=== PATIENT | female | born 1955 | race Caucasian/White ===

== ENCOUNTER 2021-10-26 18:51 | Inpatient (IN) | payer MEDICARE, SELFPAY ==
[~2021-10-26 18:51] MED LIST: Magnevist 469MG/ML 20 ML VIAL ONE
[2021-10-26 19:04] LABS: Actual Bicarbonate (HCO3a) 34.4 mEq/L (22-28); Analyzer IN Cardio ER; Base Excess (BEa) 8.7 mEq/L (-2.0 to +3.0); CO2 Tension 52.1 mmHg (35.0-45.0); Calcium, Ionized (arterial) 1.12 mmol/L (1.12-1.30); Carboxyhemoglobin (COHb) 0.7 gm% (0.0-3.0); Hemoglobin (Hb) 11.8 g/dL (12.0-16.0); O2 Tension (PaO2), arterial 238.3 mmHg (> 80.0); Potassium - ABG Lab 4.97 mmol/L (3.70-5.30); pH, Arterial 7.44 (7.35-7.45)
[2021-10-26 19:05] LABS: Puncture Site RBR
[2021-10-26 19:06] LABS: ALV-art Gradient 266.975 mmHg (0-20)
[2021-10-26 19:09] LABS: Hemoglobin 11.6 g/dL (12.0-16.0); Mean Corpuscular HGB CONC 30.2 g/dL (32.0-36.0); Mean Corpuscular Hemoglobin 32.5 pg (27.0-31.0); Mean Platelet Volume 8.9 fL (7.4-10.4); Platelet Count 257 thou/uL (130-400); RBC Distribution Width 13.7 % (11.5-14.5); Red Blood Cell (RBC) Count 3.57 mill/uL (4.20-5.40); White Blood Cell (WBC) Count 18.4 thou/uL (4.8-10.8)
[2021-10-26] MEDS ORDERED: Fentanyl CADD 100 ML IV SCH (19:15)
[2021-10-26 19:32] LABS: ALT (SGPT) 105 U/L (8-55); AST (SGOT) 456 U/L (5-34); Albumin 2.6 g/dL (3.4-4.8); Alkaline Phosphatase 1885 U/L (40-110); Anion Gap 12 mmol/L (10-20); BUN (Urea Nitrogen) 23 mg/dL (9.8-20.1); Bilirubin, Total 7.9 mg/dL (0.2-1.2); CK (CPK) 198 U/L (29-168); Calc. Creatinine Clearance 0 mL/min (70-130); Calcium 8.4 mg/dL (7.8-10.44); Carbon Dioxide 36 mmol/L (23-31); Chloride 97 mmol/L (98-107); Estimated GFR 95; Globulin 2.1 g/dL (2.4-3.5); Glucose 77 mg/dL (80-115); Potassium 5.2 mmol/L (3.5-5.1); Protein, Total 4.7 g/dL (5.8-8.1); Sodium 140 mmol/L (136-145)
[2021-10-26 19:33] LABS: Band 4 % (5-11); Basophilic Stippling SLIGHT = 1-2 cells (100X) (None Seen); Hypochromia SLIGHT = 6-15 cells (100X) (0-5/hpf); Lymphocytes 3 % (21-51); MDiff Complete? YES; Macrocytosis SLIGHT = 6-15 cells (100X) (0-5/hpf); Monocytes 5 % (0-10); Neutrophil 87 % (42-75); Ovalocytes SLIGHT = 2-5 cells (100X) (0-1/hpf); Platelet Morphology Comment Appears Adequate; Polychromasia SLIGHT = 2-3 cells (100X) (0-2/hpf); Target Cells SLIGHT = 2-5 cells (100X) (0-1/hpf)
[2021-10-26 19:45] LABS: Bacteria/HPF 2+ HPF (None Seen); Bilirubin 2+ (Negative); Blood, Urine Negative (Negative); Clarity Turbid (Clear); Glucose, Urine (Dipstick) Normal (Negative); Ketone, Urine Negative (Negative); Leukocyte Negative Leu/uL (Negative); Nitrite Negative (Negative); Protein, Urine (Dipstick) 50 mg/dL (Neg-Trace); RBC/HPF 0-3 HPF (0-3); Renal Epithelial 0-3 HPF (None Seen); Specific Gravity, Urine 1.026 (1.002-1.036); Squamous Epithelial 0-3 HPF (0-3); Transitional Epithelial 0-3 HPF (None Seen); Urobilinogen Greater than 12 mg/dL (Less than 2); WBC/HPF 21-50 HPF (0-3); pH, Urine 5.5 (5.0-9.0)
[2021-10-26 19:57] LABS: CKMB 8.5 ng/mL (0-6.6)
[2021-10-26 20:03] LABS: Cellular Cast 0-3 LPF (None Seen)
[2021-10-27] MEDS ORDERED: Albuterol 200 PUFF (6.7GM INHALER) INH PRN (00:02)
[2021-10-27] MEDS: Dexamethasone 4 mg/ml Vial SLOW IVP SCH ×5 (00:28→23:04)
[2021-10-27] MEDS ORDERED: Lactated Ringer's 1,000 ML IV SCH ×2 (02:00→04:15)
[2021-10-27 02:53] LABS: #Lymphocytes 0.7 thou/uL (1.20-3.40); #Monocytes 0.5 thou/uL (0.11-0.59); #Neutrophils 14.4 thou/uL (1.40-6.50); %Basophils 0.1 % (0.0-1.0); %Eosinophils 0.1 % (0.0-10.0); %Lymphocytes 4.2 % (21.0-51.0); %Monocytes 3.3 % (0.0-10.0); %Neutrophils 92.4 % (42.0-75.0); Hemoglobin 12.1 g/dL (12.0-16.0); Mean Corpuscular HGB CONC 30.3 g/dL (32.0-36.0); Mean Corpuscular Hemoglobin 32.4 pg (27.0-31.0); Mean Platelet Volume 9.1 fL (7.4-10.4); Platelet Count 282 thou/uL (130-400); RBC Distribution Width 13.9 % (11.5-14.5); Red Blood Cell (RBC) Count 3.73 mill/uL (4.20-5.40); White Blood Cell (WBC) Count 15.6 thou/uL (4.8-10.8)
[2021-10-27 03:10] LABS: ALT (SGPT) 105 U/L (8-55); AST (SGOT) 493 U/L (5-34); Albumin 2.6 g/dL (3.4-4.8); Alkaline Phosphatase 1927 U/L (40-110); Anion Gap 14 mmol/L (10-20); BUN (Urea Nitrogen) 23 mg/dL (9.8-20.1); Bilirubin, Total 8.1 mg/dL (0.2-1.2); Calc. Creatinine Clearance 55 mL/min (70-130); Calcium 8.2 mg/dL (7.8-10.44); Carbon Dioxide 31 mmol/L (23-31); Chloride 100 mmol/L (98-107); Estimated GFR 89; Globulin 2.2 g/dL (2.4-3.5); Glucose 70 mg/dL (80-115); Potassium 5.4 mmol/L (3.5-5.1); Protein, Total 4.8 g/dL (5.8-8.1); Sodium 140 mmol/L (136-145)
[2021-10-27 03:20] LABS: Troponin I 0.015 ng/mL (< 0.028)
[2021-10-27] MEDS ORDERED: Sodium Chloride 0.9% 500 ML IV SCH (04:00)
[2021-10-27] MEDS ORDERED: Dextrose 5% in Water 1,000 ML IV PRN (04:22)
[2021-10-27] MEDS ORDERED: Dextrose 50% Abboject 50 ML SYRINGE SLOW IVP PRN (04:22)
[2021-10-27] MEDS ORDERED: HumaLOG 300 UNITS/3 ML VIAL SC PRN (04:22)
[2021-10-27 04:24] LABS: HBSAg Index 0.22 S/CO (0-0.99); Hep A IgM AB Non-Reactive (NonReactive); Hep B Surf Ag Non-Reactive S/CO (NonReactive); Hepatitis B Core IgM Abs Non-Reactive (NonReactive)
[2021-10-27 05:40] LABS: Hep C Index 0.94 S/CO (0-0.79)
[2021-10-27 05:49] LABS: Hep C IgG Ab Reflex HepC Qnt (NonReactive)
[2021-10-27] MEDS: Budesonide 0.5 MG/2 ML NEB NEB SCH ×2 (06:46→19:12)
[2021-10-27] MEDS: Arformoterol 15 MCG/2 ML NEB NEB SCH ×2 (06:46→19:12)
[2021-10-27 07:06] LABS: Actual Bicarbonate (HCO3a) 28.6 mEq/L (22-28); Base Excess (BEa) 3.4 mEq/L (-2.0 to +3.0); CO2 Tension 46.2 mmHg (35.0-45.0); Carboxyhemoglobin (COHb) 0.4 gm% (0.0-3.0); Hemoglobin (Hb) 11.2 g/dL (12.0-16.0); O2 Tension (PaO2), arterial 75.8 mmHg (> 80.0); Potassium - ABG Lab 4.49 mmol/L (3.70-5.30); pH, Arterial 7.41 (7.35-7.45)
[2021-10-27 07:11] LABS: Puncture Site LRA
[2021-10-27] MEDS: Lactated Ringer's 1,000 ML IV SCH ×2 (07:22→16:33)
[2021-10-27] MEDS ORDERED: NOREPINEPHRINE 8 MG/250 ML-D5W 250 ML IVPB SCH (07:45)
[2021-10-27] MEDS ORDERED: NOREPINEPHRINE 8 MG/250 ML-D5W 250 ML ONE (08:02)
[2021-10-27] MEDS: Famotidine/PF 20 mg/2ml Vial SLOW IVP SCH (08:12)
[2021-10-27] MEDS ORDERED: Enoxaparin Sodium 40 MG/0.4 ML SYRINGE SC SCH (09:00)
[2021-10-27] MEDS ORDERED: Ipratropium Oral Inhaler INH SCH (09:00)
[2021-10-27] MEDS ORDERED: Propofol 1,000 MG/100 ML VIAL IV ONE (09:33)
[2021-10-27] MEDS ORDERED: Vecuronium 10 MG VIAL IVP PRN (09:44)
[2021-10-27] MEDS ORDERED: Propofol 1,000 MG/100 ML VIAL IV PRN (09:45)
[2021-10-27] MEDS ORDERED: Propofol BOLUS 1,000 MG/100 ML VIAL IV PRN (09:45)
[2021-10-27] MEDS ORDERED: Cefepime 1 GM VIAL ONE (12:33)
[2021-10-27] MEDS ORDERED: Cefepime 2 GM VIAL ONE (12:35)
[2021-10-27] MEDS: Cefepime 2 GM in Sodium Chloride 0.9% 100 ML IVPB SCH ×2 (12:36→16:32)
[2021-10-27] MEDS ORDERED: Fentanyl CADD 100 ML ONE (17:39)
[2021-10-27] MEDS: HumaLOG 300 UNITS/3 ML VIAL SC PRN (22:55)
[2021-10-28] MEDS: Lactated Ringer's 1,000 ML IV SCH ×3 (00:04→10:46)
[2021-10-28] MEDS: Cefepime 2 GM in Sodium Chloride 0.9% 100 ML IVPB SCH ×3 (00:19→16:55)
[2021-10-28] MEDS: HumaLOG 300 UNITS/3 ML VIAL SC PRN (04:00)
[2021-10-28 04:56] LABS: ALT (SGPT) 95 U/L (8-55); AST (SGOT) 490 U/L (5-34); Albumin 2.6 g/dL (3.4-4.8); Alkaline Phosphatase 1643 U/L (40-110); Anion Gap 11 mmol/L (10-20); BUN (Urea Nitrogen) 32 mg/dL (9.8-20.1); Bilirubin, Total 7.9 mg/dL (0.2-1.2); Calc. Creatinine Clearance 53 mL/min (70-130); Carbon Dioxide 32 mmol/L (23-31); Chloride 101 mmol/L (98-107); Estimated GFR 84; Glucose 174 mg/dL (80-115); Potassium 4.7 mmol/L (3.5-5.1); Protein, Total 4.6 g/dL (5.8-8.1); Sodium 139 mmol/L (136-145)
[2021-10-28 04:58] LABS: Band 13 % (5-11); Hemoglobin 11.4 g/dL (12.0-16.0); Hypochromia SLIGHT = 6-15 cells (100X) (0-5/hpf); Lymphocytes 5 % (21-51); MDiff Complete? YES; Macrocytosis SLIGHT = 6-15 cells (100X) (0-5/hpf); Mean Corpuscular HGB CONC 29.6 g/dL (32.0-36.0); Mean Corpuscular Hemoglobin 31.6 pg (27.0-31.0); Mean Platelet Volume 9.2 fL (7.4-10.4); Monocytes 1 % (0-10); Neutrophil 81 % (42-75); Platelet Count 339 thou/uL (130-400); Platelet Morphology Comment Appears Adequate; RBC Distribution Width 14.2 % (11.5-14.5); White Blood Cell (WBC) Count 25.9 thou/uL (4.8-10.8)
[2021-10-28] MEDS: Dexamethasone 4 mg/ml Vial SLOW IVP SCH ×3 (05:04→18:32)
[2021-10-28] MEDS ORDERED: Fentanyl CADD 100 ML ONE (05:55)
[2021-10-28] MEDS ORDERED: Ventilator Sedation Protocol 1 EACH FS ONE (06:05)
[2021-10-28] MEDS ORDERED: Midazolam HCl 2 mg/2 ml Vial SLOW IVP PRN (06:10)
[2021-10-28] MEDS ORDERED: DISCONTINUE PREVIOUS NARCOTIC PAIN MEDICATIONS AND BENZODIAZEPINES FS SCH (06:15)
[2021-10-28] MEDS ORDERED: Propofol BOLUS 1,000 MG/100 ML VIAL IV PRN (06:15)
[2021-10-28] MEDS ORDERED: Fentanyl BOLUS 250 ML IVPB PRN (06:15)
[2021-10-28] MEDS ORDERED: Propofol 1,000 MG/100 ML VIAL IV PRN (06:15)
[2021-10-28] MEDS ORDERED: Fentanyl CADD 100 ML IV SCH (06:15)
[2021-10-28] MEDS: Budesonide 0.5 MG/2 ML NEB NEB SCH ×2 (06:42→18:29)
[2021-10-28] MEDS: Arformoterol 15 MCG/2 ML NEB NEB SCH ×2 (06:42→18:29)
[2021-10-28 06:49] VITALS: BP 95/62
[2021-10-28 07:07] LABS: Actual Bicarbonate (HCO3a) 31.1 mEq/L (22-28); Base Excess (BEa) 4.9 mEq/L (-2.0 to +3.0); Calcium, Ionized (arterial) 1.14 mmol/L (1.12-1.30); Carboxyhemoglobin (COHb) 0.6 gm% (0.0-3.0); O2 Tension (PaO2), arterial 69.7 mmHg (> 80.0); Potassium - ABG Lab 4.43 mmol/L (3.70-5.30); pH, Arterial 7.39 (7.35-7.45)
[2021-10-28 07:13] LABS: Puncture Site LRA
[2021-10-28] MEDS ORDERED: clonazePAM 1 MG TAB PO SCH (10:45)
[2021-10-28] MEDS: Famotidine/PF 20 mg/2ml Vial SLOW IVP SCH (10:46)
[2021-10-28] MEDS ORDERED: Lorazepam 2 MG/ML VIAL SLOW IVP PRN (19:58)
[2021-10-28] MEDS: clonazePAM 1 MG TAB PO SCH (20:45)
[2021-10-29] MEDS: Dexamethasone 4 mg/ml Vial SLOW IVP SCH ×4 (00:18→20:42)
[2021-10-29] MEDS: Cefepime 2 GM in Sodium Chloride 0.9% 100 ML IVPB SCH ×2 (00:18→09:25)
[2021-10-29] MEDS: Lorazepam 2 MG/ML VIAL SLOW IVP PRN ×3 (01:14→20:57)
[2021-10-29] MEDS ORDERED: Lorazepam 0.5 MG TAB PO SCH (02:15)
[2021-10-29] MEDS ORDERED: Lorazepam 2 MG/ML VIAL SLOW IVP SCH (02:15)
[2021-10-29] MEDS ORDERED: Haloperidol Lactate 5 MG/ML VIAL IM SCH (02:45)
[2021-10-29 04:14] LABS: #Lymphocytes 0.4 thou/uL (1.20-3.40); #Monocytes 1.6 thou/uL (0.11-0.59); #Neutrophils 27.6 thou/uL (1.40-6.50); %Eosinophils 0.1 % (0.0-10.0); %Lymphocytes 1.4 % (21.0-51.0); %Monocytes 5.4 % (0.0-10.0); %Neutrophils 93.1 % (42.0-75.0); Hemoglobin 11.1 g/dL (12.0-16.0); Mean Corpuscular HGB CONC 30.2 g/dL (32.0-36.0); Mean Corpuscular Hemoglobin 32.2 pg (27.0-31.0); Mean Platelet Volume 9.3 fL (7.4-10.4); Platelet Count 273 thou/uL (130-400); RBC Distribution Width 14.6 % (11.5-14.5); Red Blood Cell (RBC) Count 3.44 mill/uL (4.20-5.40); White Blood Cell (WBC) Count 29.7 thou/uL (4.8-10.8)
[2021-10-29 04:29] LABS: ALT (SGPT) 95 U/L (8-55); AST (SGOT) 389 U/L (5-34); Albumin 2.5 g/dL (3.4-4.8); Alkaline Phosphatase 1427 U/L (40-110); Anion Gap 14 mmol/L (10-20); BUN (Urea Nitrogen) 45 mg/dL (9.8-20.1); Bilirubin, Total 7.1 mg/dL (0.2-1.2); Calc. Creatinine Clearance 42 mL/min (70-130); Calcium 8.1 mg/dL (7.8-10.44); Carbon Dioxide 30 mmol/L (23-31); Chloride 104 mmol/L (98-107); Estimated GFR 56; Globulin 2.3 g/dL (2.4-3.5); Glucose 84 mg/dL (80-115); Potassium 5.6 mmol/L (3.5-5.1); Protein, Total 4.8 g/dL (5.8-8.1); Sodium 142 mmol/L (136-145)
[2021-10-29] MEDS ORDERED: Lactated Ringer's 500 ML IV SCH (06:00)
[2021-10-29] MEDS: Budesonide 0.5 MG/2 ML NEB NEB SCH ×2 (06:38→18:24)
[2021-10-29] MEDS: Arformoterol 15 MCG/2 ML NEB NEB SCH ×2 (06:38→18:24)
[2021-10-29] MEDS ORDERED: Dexmedetomidine In 0.9 % NaCl 100 ML IVPB SCH (08:30)
[2021-10-29] MEDS: Famotidine/PF 20 mg/2ml Vial SLOW IVP SCH (09:24)
[2021-10-29] MEDS: clonazePAM 1 MG TAB PO SCH (11:29)
[2021-10-29 14:33] LABS: Anion Gap 15 mmol/L (10-20); BUN (Urea Nitrogen) 50 mg/dL (9.8-20.1); Calc. Creatinine Clearance 42 mL/min (70-130); Calcium 8.4 mg/dL (7.8-10.44); Carbon Dioxide 28 mmol/L (23-31); Chloride 104 mmol/L (98-107); Estimated GFR 53; Glucose 84 mg/dL (80-115); Potassium 5.1 mmol/L (3.5-5.1); Sodium 142 mmol/L (136-145)
[2021-10-29] MEDS: Lactated Ringer's 1,000 ML IV SCH ×3 (17:21→20:48)
[2021-10-29] MEDS: Dexmedetomidine 1,000 MCG in Sodium Chloride 0.9% 250 ML 240 ML IVPB SCH (20:20)
[2021-10-29] MEDS: Cefepime 1 GM in Sodium Chloride 0.9% 100 ML IVPB SCH (20:41)
[2021-10-29] MEDS ORDERED: Haloperidol Lactate 5 MG/ML VIAL SLOW IVP SCH (22:00)
[2021-10-29 22:04] LABS: Actual Bicarbonate (HCO3a) 28.5 mEq/L (22-28); Base Excess (BEa) 2.5 mEq/L (-2.0 to +3.0); CO2 Tension 49.6 mmHg (35.0-45.0); Calcium, Ionized (arterial) 1.22 mmol/L (1.12-1.30); Carboxyhemoglobin (COHb) 0.5 gm% (0.0-3.0); Hemoglobin (Hb) 12.6 g/dL (12.0-16.0); O2 Tension (PaO2), arterial 82.5 mmHg (> 80.0); Potassium - ABG Lab 4.76 mmol/L (3.70-5.30); pH, Arterial 7.38 (7.35-7.45)
[2021-10-29 22:13] LABS: Puncture Site LRA
[2021-10-30] MEDS: Lactated Ringer's 1,000 ML IV SCH ×2 (00:54→11:17)
[2021-10-30 03:39] LABS: #Monocytes 1.9 thou/uL (0.11-0.59); #Neutrophils 26.6 thou/uL (1.40-6.50); %Eosinophils 0.1 % (0.0-10.0); %Lymphocytes 3.3 % (21.0-51.0); %Monocytes 6.5 % (0.0-10.0); %Neutrophils 90.1 % (42.0-75.0); Hemoglobin 12.6 g/dL (12.0-16.0); Mean Corpuscular HGB CONC 32.1 g/dL (32.0-36.0); Mean Corpuscular Hemoglobin 33.5 pg (27.0-31.0); Mean Platelet Volume 9.8 fL (7.4-10.4); Platelet Count 235 thou/uL (130-400); RBC Distribution Width 14.8 % (11.5-14.5); Red Blood Cell (RBC) Count 3.76 mill/uL (4.20-5.40); White Blood Cell (WBC) Count 29.5 thou/uL (4.8-10.8)
[2021-10-30 07:18] LABS: ALT (SGPT) 111 U/L (8-55); AST (SGOT) 369 U/L (5-34); Albumin 2.4 g/dL (3.4-4.8); Alkaline Phosphatase 1454 U/L (40-110); Anion Gap 18 mmol/L (10-20); BUN (Urea Nitrogen) 51 mg/dL (9.8-20.1); Bilirubin, Total 8.4 mg/dL (0.2-1.2); Calc. Creatinine Clearance 43 mL/min (70-130); Calcium 8.5 mg/dL (7.8-10.44); Carbon Dioxide 25 mmol/L (23-31); Chloride 103 mmol/L (98-107); Estimated GFR 57; Globulin 2.4 g/dL (2.4-3.5); Glucose 96 mg/dL (80-115); Potassium 5.6 mmol/L (3.5-5.1); Protein, Total 4.8 g/dL (5.8-8.1); Sodium 140 mmol/L (136-145)
[2021-10-30] MEDS: Dexmedetomidine 1,000 MCG in Sodium Chloride 0.9% 250 ML 240 ML IVPB SCH (07:53)
[2021-10-30] MEDS: Budesonide 0.5 MG/2 ML NEB NEB SCH ×2 (08:03→18:11)
[2021-10-30] MEDS: Arformoterol 15 MCG/2 ML NEB NEB SCH ×2 (08:03→18:10)
[2021-10-30 08:37] LABS: Hep C PCR-Quant HCV Not Detected IU/mL (.)
[2021-10-30] MEDS: Dexamethasone 4 mg/ml Vial SLOW IVP SCH ×2 (09:09→20:13)
[2021-10-30] MEDS: Cefepime 1 GM in Sodium Chloride 0.9% 100 ML IVPB SCH ×2 (09:09→19:55)
[2021-10-30] MEDS: Famotidine/PF 20 mg/2ml Vial SLOW IVP SCH (09:10)
[2021-10-30] MEDS ORDERED: NOREPINEPHRINE 8 MG/250 ML-D5W 250 ML IVPB SCH (10:15)
[2021-10-30] MEDS: Diazepam 10 MG/2 ML SYRINGE IVP PRN ×2 (11:48→20:14)
[2021-10-30 13:14] VITALS: BMI 19.6
[2021-10-30] MEDS: Lorazepam 2 MG/ML VIAL SLOW IVP PRN (17:06)
[2021-10-30] MEDS ORDERED: Acetaminophen 650 MG Suppository PR PRN (20:28)
[2021-10-31] MEDS: Lactated Ringer's 1,000 ML IV SCH ×2 (01:06→07:43)
[2021-10-31 06:47] LABS: Hemoglobin 12.1 g/dL (12.0-16.0); Mean Corpuscular HGB CONC 30.4 g/dL (32.0-36.0); Mean Corpuscular Hemoglobin 31.3 pg (27.0-31.0); Mean Platelet Volume 9.9 fL (7.4-10.4); Platelet Count 217 thou/uL (130-400); Red Blood Cell (RBC) Count 3.87 mill/uL (4.20-5.40); White Blood Cell (WBC) Count 28.9 thou/uL (4.8-10.8)
[2021-10-31 07:06] LABS: ALT (SGPT) 110 U/L (8-55); AST (SGOT) 355 U/L (5-34); Albumin 2.4 g/dL (3.4-4.8); Alkaline Phosphatase 1288 U/L (40-110); Anion Gap 19 mmol/L (10-20); BUN (Urea Nitrogen) 44 mg/dL (9.8-20.1); Bilirubin, Total 10.5 mg/dL (0.2-1.2); Calc. Creatinine Clearance 48 mL/min (70-130); Calcium 8.8 mg/dL (7.8-10.44); Carbon Dioxide 28 mmol/L (23-31); Chloride 102 mmol/L (98-107); Estimated GFR 63; Globulin 1.9 g/dL (2.4-3.5); Glucose 83 mg/dL (80-115); Potassium 4.7 mmol/L (3.5-5.1); Protein, Total 4.3 g/dL (5.8-8.1); Sodium 144 mmol/L (136-145)
[2021-10-31] MEDS: Budesonide 0.5 MG/2 ML NEB NEB SCH (07:18)
[2021-10-31] MEDS: Arformoterol 15 MCG/2 ML NEB NEB SCH (07:19)
[2021-10-31 07:33] LABS: Band 1 % (5-11); Hypochromia SLIGHT = 6-15 cells (100X) (0-5/hpf); Lymphocytes 3 % (21-51); MDiff Complete? YES; Macrocytosis MODERATE=16-30 cells (100X) (0-5/hpf); Monocytes 3 % (0-10); Neutrophil 93 % (42-75); Platelet Morphology Comment Appears Adequate; Polychromasia MODERATE = 3-4 cells (100X) (0-2/hpf); Target Cells MODERATE= 6-15 cells (100X) (0-1/hpf)
[2021-10-31] MEDS: Diazepam 10 MG/2 ML SYRINGE IVP PRN ×2 (07:35→11:01)
[2021-10-31] MEDS: Cefepime 1 GM in Sodium Chloride 0.9% 100 ML IVPB SCH (07:36)
[2021-10-31] MEDS: Famotidine/PF 20 mg/2ml Vial SLOW IVP SCH (09:09)
[2021-10-31] MEDS: Dexamethasone 4 mg/ml Vial SLOW IVP SCH (09:10)
[2021-10-31 10:24] VITALS: TEMP 99.3
[2021-10-31] MEDS ORDERED: Morphine 2 MG/ML VIAL SLOW IVP PRN (10:25)
[2021-10-31] MEDS: Morphine 2 MG/ML VIAL SLOW IVP PRN ×3 (12:08→13:57)
== END 2021-10-31 14:04 | disposition hospice, inpatient (51) | DRG 166 ==
LOC: ERS 18:51 → CCU 21:34
PROVIDERS: ADMIT Family Medicine; ATTEND Family Medicine
PROC: 5A1945Z Respiratory Ventilation, 24-96 Consecutive Hours (ICD-10-PCS; 2021-10-26)
PROC: 0BH18EZ Insertion of Endotracheal Airway into Trachea, Via Natural or Artificial Opening Endoscopic (ICD-10-PCS; 2021-10-26)
PROC: 0BBD8ZX Excision of Right Middle Lung Lobe, Via Natural or Artificial Opening Endoscopic, Diagnostic (ICD-10-PCS; principal; 2021-10-27)
PROC: 0BD58ZX Extraction of Right Middle Lobe Bronchus, Via Natural or Artificial Opening Endoscopic, Diagnostic (ICD-10-PCS; 2021-10-27)
PROC: 0BDD8ZX Extraction of Right Middle Lung Lobe, Via Natural or Artificial Opening Endoscopic, Diagnostic (ICD-10-PCS; 2021-10-27)
PROC: 5A09457 Assistance with Respiratory Ventilation, 24-96 Consecutive Hours, Continuous Positive Airway Pressure (ICD-10-PCS; 2021-10-28)
DX: C34.2 Malignant neoplasm of middle lobe, bronchus or lung (principal); J96.01 Acute respiratory failure with hypoxia; G93.6 Cerebral edema; G93.41 Metabolic encephalopathy; J96.02 Acute respiratory failure with hypercapnia; I24.8 Other forms of acute ischemic heart disease; N39.0 Urinary tract infection, site not specified; R18.8 Other ascites; J90 Pleural effusion, not elsewhere classified; C78.7 Secondary malignant neoplasm of liver and intrahepatic bile duct; C79.31 Secondary malignant neoplasm of brain; J44.1 Chronic obstructive pulmonary disease with (acute) exacerbation; N17.9 Acute kidney failure, unspecified; E44.0 Moderate protein-calorie malnutrition; G89.29 Other chronic pain; F41.0 Panic disorder [episodic paroxysmal anxiety]; G25.81 Restless legs syndrome; M81.0 Age-related osteoporosis without current pathological fracture; G47.33 Obstructive sleep apnea (adult) (pediatric); Z51.5 Encounter for palliative care; Z66 Do not resuscitate; Z20.822 Contact with and (suspected) exposure to COVID-19; D64.9 Anemia, unspecified; E86.0 Dehydration; E87.5 Hyperkalemia; G50.0 Trigeminal neuralgia; R32 Unspecified urinary incontinence; Z88.8 Allergy status to other drugs, medicaments and biological substances; Z79.51 Long term (current) use of inhaled steroids; Z79.82 Long term (current) use of aspirin; Z79.899 Other long term (current) drug therapy; Z98.890 Other specified postprocedural states; Z87.891 Personal history of nicotine dependence; Z68.20 Body mass index [BMI] 20.0-20.9, adult
CPT/HCPCS: 36415; 36416; 36600; 70450; 70553; 71045; 71250; 74176; 80053; 80074; 81003; 81015; 82140; 82550; 82553; 82805; 82977; 83605; 83735; 84100; 84484; 85025; 87086; 87522; 88112; 88305; 88341; 88342; 93005; 93010; 94002; 94003; 94150; 94640; 94660; 96374; A9579; J0692; J1100; J1630; J1650; J1815; J2060; J2270; J2704; J3010; J3360; J3490; J7030; J7050; J7120; J7620; J7626; P9045; S0028

== ENCOUNTER 2021-10-31 14:21 | Inpatient (IN) | payer OTHER ==
[2021-10-31] MEDS ORDERED: Lorazepam 2 MG/ML VIAL SLOW IVP PRN (14:38)
[2021-10-31] MEDS ORDERED: Morphine 2 MG/ML VIAL SLOW IVP PRN (14:39)
[2021-10-31] MEDS: Lorazepam 2 MG/ML VIAL SLOW IVP SCH ×2 (14:57→19:00)
[2021-10-31] MEDS ORDERED: Scopolamine 1.5 mg/72 hour Patch TOP SCH (15:00)
[2021-10-31] MEDS: Morphine 10 MG/ML VIAL SLOW IVP SCH ×2 (15:25→20:30)
[2021-11-01] MEDS: Lorazepam 2 MG/ML VIAL SLOW IVP SCH ×4 (00:17→11:09)
[2021-11-01] MEDS: Morphine 10 MG/ML VIAL SLOW IVP SCH ×7 (00:18→23:12)
[2021-11-01] MEDS ORDERED: Midazolam HCl 2 mg/2 ml Vial SLOW IVP PRN ×2 (15:00→15:15)
[2021-11-01] MEDS: Midazolam HCl 2 mg/2 ml Vial SLOW IVP SCH ×3 (15:45→23:13)
[2021-11-02] MEDS: Morphine 10 MG/ML VIAL SLOW IVP SCH ×6 (03:55→22:52)
[2021-11-02] MEDS: Midazolam HCl 2 mg/2 ml Vial SLOW IVP SCH ×6 (03:55→20:49)
[2021-11-02] MEDS ORDERED: Midazolam HCl 2 mg/2 ml Vial SLOW IVP PRN (08:45)
[2021-11-02 19:22] VITALS: BP 64/43; TEMP 101.1
[2021-11-03] MEDS: Midazolam HCl 2 mg/2 ml Vial SLOW IVP SCH (01:07)
== END 2021-11-03 02:48 | disposition expired | DRG 951 ==
LOC: CCU 14:21 → MSONC 18:00
PROVIDERS: ADMIT Family Medicine; ATTEND Family Medicine
DX: Z51.5 Encounter for palliative care (principal); J96.01 Acute respiratory failure with hypoxia; G93.41 Metabolic encephalopathy; G93.6 Cerebral edema; J44.1 Chronic obstructive pulmonary disease with (acute) exacerbation; C34.90 Malignant neoplasm of unspecified part of unspecified bronchus or lung; C78.7 Secondary malignant neoplasm of liver and intrahepatic bile duct; C79.31 Secondary malignant neoplasm of brain; N39.0 Urinary tract infection, site not specified; Z66 Do not resuscitate; F03.90 Unspecified dementia, unspecified severity, without behavioral disturbance, psychotic disturbance, mood disturbance, and anxiety; G47.00 Insomnia, unspecified; F41.0 Panic disorder [episodic paroxysmal anxiety]; Z88.8 Allergy status to other drugs, medicaments and biological substances; Z79.51 Long term (current) use of inhaled steroids; Z79.899 Other long term (current) drug therapy; Z87.891 Personal history of nicotine dependence
CPT/HCPCS: 94660; J2060; J2250; J2270